=== PATIENT | male | born 1950 | race Caucasian/White ===

== ENCOUNTER → 2020-01-20 09:31 | Outpatient (BNVA) | payer MEDICARE, OTHER, SELFPAY | PROVIDERS: Family Provider Internal Medicine; PCP Registered Nurse; Visit Provider Nurse Practitioner Family | DX: N18.2 Chronic kidney disease, stage 2 (mild) (principal) | CPT/HCPCS: 80069; 82570; 84156; 85007; 85027 ==

== ENCOUNTER → 2020-01-23 08:19 | Outpatient (BNVA) | payer MEDICARE, OTHER, SELFPAY | PROVIDERS: Family Provider Internal Medicine; PCP Registered Nurse; Visit Provider Nurse Practitioner Psychiatric/Mental Health | DX: F33.2 Major depressive disorder, recurrent severe without psychotic features (principal); F41.1 Generalized anxiety disorder | CPT/HCPCS: 99213 ==

== ENCOUNTER → 2020-03-31 07:33 | Outpatient (BNVA) | payer MEDICARE, OTHER, SELFPAY | PROVIDERS: Family Provider Internal Medicine; PCP Registered Nurse; Visit Provider Nurse Practitioner Psychiatric/Mental Health | DX: F33.2 Major depressive disorder, recurrent severe without psychotic features (principal); F41.1 Generalized anxiety disorder | CPT/HCPCS: 99214 ==

== ENCOUNTER 2020-04-14 15:27 | Outpatient (CLI) | payer MEDICARE, OTHER, SELFPAY ==
--- NOTE | 2020-04-14 15:35 | XR_ITS ---
WS: [id number] LEFT SHOULDER: 3 VIEW(S) TECHNIQUE: Internal and external rotation with Y view. HISTORY: left shoulder pain COMPARISON: None available. No fracture or dislocation or soft tissue abnormality. Moderate narrowing of the AC joint and glenohumeral joint. There are small lytic areas over the humer al head and glenoid. Visualized LEFT lung is clear. XR/XR shoulder LT min 2V* [id number] IMPRESSION: 1. Moderate AC joint and glenohumeral joint space narrowing. 2. Lytic changes in the humeral head and glenoid. May be subchondral cystic ch anges from degeneration. Multiple myeloma may appear similar.
--- NOTE | 2020-04-14 15:35 | MR_ITS ---
WS: [id number] MRI LEFT SHOULDER HISTORY: M25.512 Pain in left shoulder COMPARISON: Shoulder radiograph 04/14/2020 TECHNIQUE: Multiplanar sequences of the shoulder joint are submitted. Quality of this examination is limited by motion. Moderate AC joint hypertrophy. Soft tissue hypertrophy and osteophytes encroach upon the supraspinatu s muscle. There is a large amount of fluid in the subacromial and subdeltoid bursa with synovial thic kening. Osteophyte measuring 6 mm from the distal acromion causing encroachment and narrowing of the acromiohumeral distance. No os acromion. Biceps tendon is not identified in the bicipital groove. The re is a thickened biceps tendon which is extracapsular with a large amount of fluid in the tendon she ath. Insertion site tear of the supraspinatus tendon. There is marked fraying along the superior articular surfaces. There is an additional partial thickness tear extending into the myotendinous insertion ov er the superior humeral head. There is an additional moderate-sized insertion site tear of the infras pinatus tendon. There is fluid extending along the subscapularis tendon which is often seen with tear . There is fluid in the subscapularis recess. There are small loose bodies in the fluid around the sh oulder. Mild atrophy of the subscapularis and supraspinatus muscles. Marked narrowing of the glenohumeral antonio nt. Humeral head is high riding from the glenoid. Marked degenerative changes with loss of cartilage over the glenoid and humeral head. Osteophyte and bone formation along the humeral head. There is an additional loose body in the tendon sheath of the proximal biceps tendon. Abnormal signal throughout the entire labrum. MR/MR shoulder LT wo con* [id number] IMPRESSION: 1. Significant degenerative changes involving the AC joint with encroachment u salvador the supraspinatus tendon. 2. 6 mm distal acromial osteophyte encroaching and narrowing the acromial yanci ral joint space. 3. Joint and bursal fluid with synovial thickening and loose bodies. Consider inflammatory arthropathy. 4. Moderate-sized insertion site tear infraspinatus tendon. Small insertion si te tear supraspinatus tendon with additional articular surface tear of the more proximal tendon over the superior humeral head. 5. Fluid along the tendon sheath of the subscapularis typically indicates a te ndon tear although there is severe tendinopathy and highly suspicious for a dis tae tear. 6. Diffusely abnormal labrum. 7. Dislocated torn biceps tendon with a loose body in the tendon sheath. 8. Severe degenerative changes at the glenohumeral joint and humeral head.
== END 2020-04-14 15:28 | disposition home or self-care (01) ==
LOC: RADWPI 15:33
PROVIDERS: Family Provider Registered Nurse; PCP Registered Nurse; Visit Provider Registered Nurse
DX: M25.512 Pain in left shoulder (principal); M25.712 Osteophyte, left shoulder; S46.812A Strain of other muscles, fascia and tendons at shoulder and upper arm level, left arm, initial encounter; X58.XXXA Exposure to other specified factors, initial encounter
CPT/HCPCS: 73030; 73221

== ENCOUNTER → 2020-05-12 08:36 | Outpatient (BNVA) | payer MEDICARE, OTHER, SELFPAY | PROVIDERS: Family Provider Registered Nurse; PCP Registered Nurse; Visit Provider Nurse Practitioner Psychiatric/Mental Health | DX: F33.2 Major depressive disorder, recurrent severe without psychotic features (principal); F41.1 Generalized anxiety disorder | CPT/HCPCS: 99213 ==

== ENCOUNTER 2020-06-02 08:08 | Outpatient (CLI) | payer MEDICARE, OTHER, SELFPAY ==
--- NOTE | 2020-06-02 08:20 | XRR_ITS ---
PROCEDURE INFORMATION: Exam: XR Right Knee Exam date and time: 06/02/2020 8:32 AM Age: 69 years old Clinical indication: Pain; Bilateral; Prior surgery; Surgery type: Bilat knee replacement; Additional info: Bilateral knee pain TECHNIQUE: Imaging protocol: XR Right knee. Views: 1 or 2 views. COMPARISON: No relevant prior studies available. FINDINGS: Bones/joints: Anatomic alignment of right knee arthroplasty. No periprosthetic lucency. Small joint effusion. Soft tissues: Unremarkable soft tissues. IMPRESSION: Anatomic alignment of right knee arthroplasty. PROCEDURE INFORMATION: Exam: XR Left Knee Exam date and time: 06/02/2020 8:32 AM Age: 69 years old Clinical indication: Pain; Bilateral; Prior surgery; Surgery type: Bilat knee replacement; Additional info: Bilateral knee pain TECHNIQUE: Imaging protocol: XR Left knee. Views: 1 or 2 views. COMPARISON: No relevant prior studies available. FINDINGS: Bones/joints: Anatomic alignment of left knee arthroplasty. No periprosthetic lucency. Small joint effusion. Soft tissues: Unremarkable soft tissues. XR/[place] [id number] IMPRESSION: Anatomic alignment of left knee arthroplasty.
== END 2020-06-02 08:09 | disposition home or self-care (01) ==
LOC: RAD 08:16
PROVIDERS: PCP Registered Nurse; Visit Provider Registered Nurse
DX: M25.561 Pain in right knee (principal); M25.562 Pain in left knee; Z96.652 Presence of left artificial knee joint
CPT/HCPCS: 73565

== ENCOUNTER 2020-06-16 07:49 | Outpatient (CLI) | payer MEDICARE, OTHER, SELFPAY ==
--- NOTE | 2020-06-16 08:00 | CT_ITS ---
WS: [id number] NONCONTRAST CT RIGHT KNEE TECHNIQUE: Noncontrast CT right knee with coronal and sagittal reformatted images. CLINICAL INFORMATION: Right knee pain COMPARISON: None. DLP: 1318.[address] scans at [facility] use at least one of these dose optimization techniques: automat ed exposure control; mA and/or kV adjustment per patient size (includes targeted exams where dose is matched to clinical indication); or iterative reconstruction. FINDINGS: Images degraded by beam hardening artifact from right TKA. Right TKA position. No evidence of hardware loosening. Patellar resurfacing with patella prosthesis. No acute fractures. Small moderate suprapatellar effusion. Otherwise normal visualized soft tissues. Normal popliteal fos sa. Mild soft tissue edema in the prepatellar and infrapatellar subcutaneous soft tissues. CT/CT knee RT wo con* [id number] IMPRESSION: 1. Postoperative changes right TKA. No evidence of hardware loosening. Hardwar e appears in good position. 2. Small moderate suprapatellar effusion. 3. Mild prepatellar and infrapatellar subcutaneous soft tissue edema. 4. No acute fractures. No other significant findings.
== END 2020-06-16 07:50 | disposition home or self-care (01) ==
PROVIDERS: PCP Registered Nurse; Visit Provider Registered Nurse
DX: M25.561 Pain in right knee (principal); M25.461 Effusion, right knee; R60.9 Edema, unspecified; Z89.611 Acquired absence of right leg above knee
CPT/HCPCS: 73700

== ENCOUNTER → 2020-06-18 13:30 | Outpatient (BNVA) | payer MEDICARE, OTHER, SELFPAY | PROVIDERS: PCP Registered Nurse; Visit Provider Registered Nurse | DX: M25.561 Pain in right knee (principal); M25.461 Effusion, right knee | CPT/HCPCS: 84550; 85025; 85651; 86140 ==

== ENCOUNTER → 2020-07-13 10:06 | Outpatient (BNVA) | payer MEDICARE, OTHER, SELFPAY | PROVIDERS: PCP Registered Nurse; Referring Provider Registered Nurse; Visit Provider Specialist | DX: M25.561 Pain in right knee (principal) | CPT/HCPCS: 73560; 73565 ==

== ENCOUNTER → 2020-10-14 08:33 | Outpatient (BNVA) | payer MEDICARE, OTHER, SELFPAY | PROVIDERS: PCP Registered Nurse; Visit Provider Nurse Practitioner Psychiatric/Mental Health | DX: F33.2 Major depressive disorder, recurrent severe without psychotic features (principal); F41.1 Generalized anxiety disorder | CPT/HCPCS: 99213 ==

== ENCOUNTER 2020-11-19 15:18 | Outpatient (CLI) | payer MEDICARE, OTHER, SELFPAY ==
--- NOTE | 2020-11-19 15:00 | USCV_ITS ---
Jaquan Jacobs Age: 70 Gender: M : 1950 Exam Date: 11/19/2020 15:40 Ordering Phys: Ricardo Mckay [employer] Technologist: Surendra Mack Exam Location: [facility] – [place] Indication: DIZZINESS AND GIDDINESS Risk Factors: Previous Vascular Surgery: Right Brachial BP: / Left Brachial BP: / Right Left Velocity (cm/s) Spectral Plaque Velocity (cm/s) Spectral Plaque Syst/Diast Broadening Syst/Diast Broadening 68.30/ 18.30 Prox CCA 75.30 / 15.50 87.10/ 20.90 Mid CCA 91.40 / 22.20 71.70/ 22.10 Distal CCA 70.10 / 15.40 66.80/ 21.00 Prox ICA 60.30 / 21.30 68.00/ 25.50 Mid ICA 59.60 / 27.70 53.10/ 19.60 Distal ICA 66.70 / 28.40 75.40 ECA 80.20 0.78 ICA/CCA 0.73 Antegrade Vertebral Antegrade 52.80/ 15.70 cm/s 76.00/ 15.60 cm/s Tri Subclavian Tri 48.50 76.85 CONCLUSIONS Right ICA stenosis <50%. Left ICA stenosis <50%. Normal antegrade Doppler flow noted in the left vertebral artery. Normal antegrade Doppler flow noted in the right vertebral artery. Bert He MD (Electronically Signed) Final Date: 20 November 2020 08:49 S
== END 2020-11-19 15:19 | disposition home or self-care (01) ==
LOC: US 15:21
PROVIDERS: PCP Registered Nurse; Visit Provider Registered Nurse
DX: R42 Dizziness and giddiness (principal); I65.23 Occlusion and stenosis of bilateral carotid arteries
CPT/HCPCS: 93880

== ENCOUNTER 2021-01-04 13:24 | Outpatient (CLI) | payer MEDICARE, OTHER, SELFPAY ==
--- NOTE | 2021-01-04 13:35 | XRR_ITS ---
PROCEDURE INFORMATION: Exam: XR Lumbosacral Spine Exam date and time: 01/04/2021 1:39 PM Age: 70 years old Clinical indication: Low back pain; Additional info: M54.5 - low back pain-years TECHNIQUE: Imaging protocol: XR of the lumbosacral spine. Views: 2 or 3 views. COMPARISON: CR XR knees AP WB w RT lmt ORTH 07/13/2020 10:12 AM FINDINGS: Bones/joints: No acute fracture. Normal alignment. There is disc space narrowing and osteophyte formation throughout the lumbar spine. Soft tissues: Unremarkable. XR/XR lumbar spine 2-3V* [id number] IMPRESSION: No acute findings.
== END 2021-01-04 13:25 | disposition home or self-care (01) ==
LOC: RAD 13:27
PROVIDERS: PCP Registered Nurse; Visit Provider Registered Nurse
DX: M54.5 Low back pain (principal)
CPT/HCPCS: 72100

== ENCOUNTER 2021-01-13 11:31 | Outpatient (CLI) | payer MEDICARE, OTHER, SELFPAY ==
[2021-01-13 12:33] LABS: Basophils % 0.6 %; Eosinophils # 0.1 10^3/uL (0.0-0.8); Eosinophils % 1.4 %; Hematocrit 38.3 % (42.0-52.0); Hemoglobin 12.6 g/dL (11.7-16.6); Lymphocytes # 1.1 10^3/uL (0.8-4.8); Lymphocytes % 17.3 %; Mean Corpuscular HGB Conc 32.9 g/dL (30.0-36.0); Mean Corpuscular Hemoglobin 30.5 pg (28.0-34.0); Mean Corpuscular Volume 92.7 fL (80-94); Mean Platelet Volume 9.7 fL (7.4-10.4); Monocytes # 0.4 10^3/uL (0.2-0.9); Monocytes % 6.9 %; Neutrophils # 4.67 10^3/uL (1.8-7.7); Neutrophils % 73.5 %; Nucleated Red Blood Cells % 0 %; Platelet Count 151 10^3/cmm (130-400); Red Blood Count 4.13 10^6/uL (4.1-5.3); White Blood Count 6.4 10^3/uL (4.0-10.0)
[2021-01-13 12:56] LABS: Anion Gap 8.9 (5-19); Blood Urea Nitrogen 14 mg/dL (8-23); Calcium 8.7 mg/dL (8.5-10.5); Carbon Dioxide 28 mmol/L (22-29); Chloride 104 mmol/L (98-107); Glomerular Filtration Rate 83.7 mL/min (90-130); Glucose 92 mg/dL (65-115); Phosphorus 2.7 mg/dL (2.5-4.5); Potassium 3.9 mmol/L (3.5-5.1); Sodium 137 mmol/L (136-145)
[2021-01-13 13:13] LABS: Creatinine Urine, Random 53 mg/dL (39-259); Microalbumin Random Urine 3 ug/dL (0-20)
[2021-01-13 13:22] LABS: Microalbum Creatinine Ratio Ur 57 mg/dL (0-20)
== END 2021-01-13 11:32 | disposition home or self-care (01) ==
LOC: LAB 11:44
PROVIDERS: PCP Registered Nurse; Visit Provider Internal Medicine Nephrology
DX: N18.30 Chronic kidney disease, stage 3 unspecified (principal)
CPT/HCPCS: 36415; 80069; 82044; 85025

== ENCOUNTER 2021-01-13 11:46 | Outpatient (CLI) | payer MEDICARE, OTHER, SELFPAY ==
--- NOTE | 2021-01-13 12:35 | XR_ITS ---
WS: [id number] Left hip, AP and frog leg views, 01/13/2021 Clinical Data: M25.552 - Pain in left hip Comparison: Pelvis and hips, 09/17/2018. Findings: No fractures or dislocations are seen. The left hip joint is intact. The soft tissues are not remarka ble. The adjacent pelvis is normal. The patient has clips in the scrotum from a vasectomy. XR/XR hip LT 2-3V wo/w pel* [id number] Impression: Negative left hip.
== END 2021-01-13 11:47 | disposition home or self-care (01) ==
PROVIDERS: PCP Registered Nurse; Visit Provider Registered Nurse
DX: M25.552 Pain in left hip (principal); G89.29 Other chronic pain
CPT/HCPCS: 73502

== ENCOUNTER → 2021-01-20 07:34 | Outpatient (BNVA) | payer MEDICARE, OTHER, SELFPAY | PROVIDERS: PCP Registered Nurse; Visit Provider Nurse Practitioner Psychiatric/Mental Health | DX: F33.2 Major depressive disorder, recurrent severe without psychotic features (principal); F41.1 Generalized anxiety disorder | CPT/HCPCS: 99214 ==

== ENCOUNTER → 2021-05-20 08:05 | Outpatient (BNVA) | payer MEDICARE, OTHER, SELFPAY | PROVIDERS: PCP Registered Nurse; Visit Provider Nurse Practitioner Psychiatric/Mental Health | DX: F33.2 Major depressive disorder, recurrent severe without psychotic features (principal); F41.1 Generalized anxiety disorder | CPT/HCPCS: 99214 ==

== ENCOUNTER → 2021-05-21 09:11 | Outpatient (BNVA) | payer MEDICARE, OTHER, SELFPAY | PROVIDERS: PCP Registered Nurse; Visit Provider Internal Medicine Nephrology | DX: E55.9 Vitamin D deficiency, unspecified (principal); N18.2 Chronic kidney disease, stage 2 (mild) | CPT/HCPCS: 82306 ==

== ENCOUNTER → 2021-06-23 16:06 | Outpatient (BNVA) | payer MEDICARE, OTHER, SELFPAY | PROVIDERS: PCP Registered Nurse; Visit Provider Urology | DX: N52.9 Male erectile dysfunction, unspecified (principal) | CPT/HCPCS: 81003 ==

== ENCOUNTER → 2021-09-16 07:35 | Outpatient (BNVA) | payer MEDICARE, OTHER, SELFPAY | PROVIDERS: PCP Registered Nurse; Visit Provider Nurse Practitioner Psychiatric/Mental Health | DX: F33.2 Major depressive disorder, recurrent severe without psychotic features (principal); F41.1 Generalized anxiety disorder | CPT/HCPCS: 99214 ==

== ENCOUNTER → 2022-01-04 08:48 | Outpatient (BNVA) | payer MEDICARE, OTHER, SELFPAY | PROVIDERS: PCP Registered Nurse; Visit Provider Nurse Practitioner Psychiatric/Mental Health | DX: F33.2 Major depressive disorder, recurrent severe without psychotic features (principal); F41.1 Generalized anxiety disorder | CPT/HCPCS: 99214 ==

== ENCOUNTER → 2022-01-12 11:29 | Outpatient (BNVA) | payer MEDICARE, OTHER, SELFPAY | PROVIDERS: PCP Registered Nurse; Visit Provider Nurse Practitioner | DX: Z90.5 Acquired absence of kidney (principal); I10 Essential (primary) hypertension | CPT/HCPCS: 82306; 82310; 82570; 83970; 84156; 85025 ==

== ENCOUNTER 2022-01-19 10:37 | Outpatient (CLI) | payer MEDICARE, OTHER, SELFPAY ==
[2022-01-19 11:24] LABS: Albumin Level 4.3 g/dL (3.5-5.2); Anion Gap 11.1 (5-19); Blood Urea Nitrogen 20 mg/dL (8-23); Calcium 9.2 mg/dL (8.5-10.5); Carbon Dioxide 27 mmol/L (22-29); Chloride 103 mmol/L (98-107); Glomerular Filtration Rate 83.4 mL/min (90-130); Glucose 96 mg/dL (65-115); Phosphorus 2.8 mg/dL (2.5-4.5); Potassium 4.1 mmol/L (3.5-5.1); Sodium 137 mmol/L (136-145)
== END 2022-01-19 10:38 | disposition home or self-care (01) ==
LOC: LAB 10:43
PROVIDERS: PCP Registered Nurse; Visit Provider Registered Nurse
DX: N18.2 Chronic kidney disease, stage 2 (mild) (principal)
CPT/HCPCS: 80069

== ENCOUNTER 2022-11-30 14:11 | Outpatient (CLI) | payer MEDICARE, SELFPAY ==
--- NOTE | 2022-11-30 14:34 | XR_ITS ---
WS: [id number] Exam: XR shoulder RT min 2V* [id number] Date/Time of Exam: 11/30/2022 2:51 PM Reason For Exam: W19.XXXA - Unspecified fall, initial encounter No acute fracture or dislocation. Moderately advanced degenerative change of the glenohumeral joint w ith [id number]. Subcortical cyst formation in the glenoid and humeral head. Moderate arthrosis at t he AC joint. XR/XR shoulder RT min 2V* [id number] IMPRESSION: 1. No fracture or dislocation. 2. Moderately advanced degenerative changes as detailed above.
== END 2022-11-30 14:12 | disposition home or self-care (01) ==
PROVIDERS: PCP Registered Nurse; Visit Provider Registered Nurse
DX: M19.011 Primary osteoarthritis, right shoulder (principal); W19.XXXA Unspecified fall, initial encounter
CPT/HCPCS: 73030

== ENCOUNTER → 2023-03-27 08:54 | Outpatient (BNVA) | payer MEDICARE, SELFPAY | PROVIDERS: PCP Registered Nurse; Visit Provider Registered Nurse | DX: Z00.00 Encounter for general adult medical examination without abnormal findings (principal) | CPT/HCPCS: 80053; 80061; 85025 ==

== ENCOUNTER → 2023-04-06 10:26 | Outpatient (BNVA) | payer MEDICARE, SELFPAY | PROVIDERS: PCP Registered Nurse; Visit Provider Internal Medicine Nephrology | DX: N18.2 Chronic kidney disease, stage 2 (mild) (principal) | CPT/HCPCS: 80069; 82306; 82310; 82570; 83970; 84156; 85025 ==

== ENCOUNTER → 2023-04-21 09:22 | Outpatient (BNVA) | payer MEDICARE, SELFPAY | PROVIDERS: PCP Registered Nurse; Visit Provider Registered Nurse | DX: E87.6 Hypokalemia (principal) | CPT/HCPCS: 80053 ==

== ENCOUNTER → 2023-06-15 14:09 | Outpatient (BNVA) | payer MEDICARE, SELFPAY | PROVIDERS: PCP Registered Nurse; Visit Provider Registered Nurse | DX: R68.89 Other general symptoms and signs (principal); Z11.52 Encounter for screening for COVID-19 | CPT/HCPCS: 87400; 87426 ==

== ENCOUNTER → 2023-10-31 09:53 | Outpatient (BNVA) | payer MEDICARE, SELFPAY | PROVIDERS: PCP Registered Nurse; Visit Provider Registered Nurse | DX: R60.9 Edema, unspecified (principal) | CPT/HCPCS: 80048; 83880 ==

== ENCOUNTER 2023-11-12 14:43 | Outpatient (CLI) | payer MEDICARE, SELFPAY ==
--- NOTE | 2023-11-12 15:33 | XRR_ITS ---
PROCEDURE INFORMATION: Exam: XR Chest Exam date and time: 11/12/2023 3:34 PM Age: 72 years old Clinical indication: Patient HX: Bilateral lower extremity edema; No previous cardiac HX TECHNIQUE: Imaging protocol: Radiologic exam of the chest. Views: 2 views. COMPARISON: CR XR chest 2V* [id number] 08/02/2018 10:39 AM FINDINGS: Lungs: Lungs are clear bilaterally. Pleural spaces: No pleural effusion. No pneumothorax. Heart/Mediastinum: Stable moderate enlargement of the cardiac silhouette. Mediastinal contours are unremarkable. Stable moderate hiatal hernia. Vasculature: Stable vascular calcifications in the aorta. Stable tortuosity of the aorta. Bones/joints: Unremarkable for age. XR/XR chest 3V [id number] IMPRESSION: 1. No acute cardiopulmonary process. 2. Incidental/nonacute findings are listed in the report.
== END 2023-11-12 14:44 | disposition home or self-care (01) ==
PROVIDERS: PCP Registered Nurse; Visit Provider Registered Nurse
DX: R60.0 Localized edema (principal)
CPT/HCPCS: 71047

== ENCOUNTER → 2024-02-12 10:53 | Outpatient (BNVA) | payer MEDICARE, SELFPAY | PROVIDERS: PCP Registered Nurse; Visit Provider Nurse Practitioner Psychiatric/Mental Health | DX: Z79.899 Other long term (current) drug therapy (principal) | CPT/HCPCS: 80061; 83036 ==

== ENCOUNTER → 2024-04-30 09:05 | Outpatient (BNVA) | payer MEDICARE, SELFPAY | PROVIDERS: PCP Registered Nurse; Visit Provider Registered Nurse | DX: N18.9 Chronic kidney disease, unspecified (principal); E55.9 Vitamin D deficiency, unspecified | CPT/HCPCS: 80069; 82043; 82306; 82310; 83970; 85007; 85027 ==

== ENCOUNTER 2024-08-09 11:43 | Outpatient (CLI) | payer MEDICARE, SELFPAY ==
[2024-08-06 10:55] VITALS: BP 130/87; BMI 29.4
--- NOTE | 2024-08-09 11:49 | XR_ITS ---
WS: [id number] XR shoulder RT min 2V* [id number] REASON FOR EXAM: M19.011 - Primary osteoarthritis, right shoulder FINDINGS: No fracture or focal bone lesion. Moderate narrowing of the acromioclavicular joint with subchondral sclerosis and osteophytosis. Severe narrowing of the joint space, essentially [id number] with significant subchondral sclerosis and cystic change in the humeral head and glenoid. Moderate osteophytosis of the humeral head. Significant subchondral and cystic change in the greater biceps tuberosity. XR/XR shoulder RT min 2V* [id number] IMPRESSION: Moderate osteoarthritis in the acromioclavicular joint. Severe osteoarthritis in the glenohumeral joint. Significant rotator cuff tendon arthropathy.
== END 2024-08-09 11:44 | disposition home or self-care (01) ==
LOC: RAD 11:44
PROVIDERS: PCP Registered Nurse; Visit Provider Registered Nurse
DX: M19.011 Primary osteoarthritis, right shoulder (principal); M25.711 Osteophyte, right shoulder
CPT/HCPCS: 73030

== ENCOUNTER → 2024-09-09 12:41 | Outpatient (BNVA) | payer MEDICARE, SELFPAY ==
[2024-08-06 10:55] VITALS: BP 130/87; BMI 29.4
== END ==
PROVIDERS: PCP Registered Nurse; Visit Provider Specialist
DX: M19.011 Primary osteoarthritis, right shoulder (principal)
CPT/HCPCS: 73030; 99204

== ENCOUNTER 2024-09-17 13:07 | Outpatient (CLI) | payer MEDICARE, SELFPAY ==
[2024-08-06 10:55] VITALS: BP 130/87; BMI 29.4
--- NOTE | 2024-09-17 14:58 | MR_ITS ---
WS: [id number] MRI RIGHT SHOULDER HISTORY: SHOULDER PAIN COMPARISON: Radiograph 09/09/2024 TECHNIQUE: Multiplanar sequences of the shoulder joint are submitted. Motion artifact on all sequences. Patient was in pain during this examination. Severe AC joint arthritis. Osteophytic and soft tissue hypertrophy of the AC joint. Subchondral erosi ons involving the distal clavicle and the adjacent acromion. Mild downsloping of the acromion. Abnorm al soft tissue at the bicipital groove. A normal biceps tendon is not identified. There is lobulated soft tissue which may be an abnormal biceps tendon or calcific deposits within the tendon sheath. No os acromion. High riding humeral head. Severe subchondral cystic changes involving the humeral head with osteophyt ic ridging. Glenoid subchondral cystic changes. Severe narrowing of the glenohumeral joint. Osteophyt ic ridging of the glenoid. There is a large joint effusion. Bursal fluid present within the subacromi al and subdeltoid bursa. There is axillary recess fluid. Marked thickening of the distal supraspinatus tendon beginning directly over the humeral head from te ndinopathy. There is an additional insertion site tear of the supraspinatus with interstitial extensi on of the tear. No full-thickness tear. Infraspinatus tendon appears intact. Wavy appearance of the d istal subscapularis tendon increased T2 signal. Distal subscapularis tendon is not identified extendi ng to the humeral head. Suspect high-grade if not complete tear. Wavy appearance of the middle glenoh umeral ligament. Intra-articular bodies are noted within the joint fluid. Markedly abnormal labrum. Suspect at least the anterior and posterior labrum are torn and avulsed. Si gnal abnormality within the superior and inferior labrum also. MR/MR shoulder RT wo con* [id number] IMPRESSION: 1. Quality is compromised by motion artifact due to pain. 2. Large joint effusion with bursal distention of the subacromial and subdelto id bursa and axillary recess and intra-articular bodies within the fluid. 3. Severe AC joint arthritis. 4. Severe glenohumeral joint arthritis. Loss of the normal joint space with cardona bchondral cystic changes and osteophytic ridging. 5. Severe distal supraspinatus tendinopathy with an additional insertion site tear extending interstitial. 6. Highly suspicious for distal complete tear of the subscapularis tendon. 7. Normal biceps tendon is not identified in the bicipital groove. There is a lobulated soft tissue which may be calcific deposits in the tendon sheath. 8. Diffusely abnormal labrum.
== END 2024-09-17 13:08 | disposition home or self-care (01) ==
LOC: RAD 09-20 06:53
PROVIDERS: PCP Registered Nurse; Visit Provider Specialist
DX: M13.811 Other specified arthritis, right shoulder (principal); R93.6 Abnormal findings on diagnostic imaging of limbs; M25.711 Osteophyte, right shoulder; M75.101 Unspecified rotator cuff tear or rupture of right shoulder, not specified as traumatic
CPT/HCPCS: 73221

== ENCOUNTER → 2024-12-25 13:11 | Outpatient (BNVA) | payer MEDICARE, SELFPAY ==
[2024-08-06 10:55] VITALS: BP 130/87; BMI 29.4
== END ==
PROVIDERS: PCP Registered Nurse; Visit Provider Specialist
DX: M19.011 Primary osteoarthritis, right shoulder (principal)
CPT/HCPCS: 99214

== ENCOUNTER → 2025-02-18 10:18 | Outpatient (BNVA) | payer OTHER, SELFPAY ==
[2024-08-06 10:55] VITALS: BP 130/87; BMI 29.4
== END ==
PROVIDERS: PCP Registered Nurse; Visit Provider Nurse Practitioner Psychiatric/Mental Health
DX: F33.2 Major depressive disorder, recurrent severe without psychotic features (principal); F41.1 Generalized anxiety disorder
CPT/HCPCS: 80061; 83036

== ENCOUNTER → 2025-04-24 09:31 | Outpatient (BNVA) | payer OTHER, SELFPAY ==
[2025-02-21 11:33] VITALS: BP 146/90; BMI 31.1
== END ==
PROVIDERS: PCP Registered Nurse; Visit Provider Registered Nurse
DX: Z13.6 Encounter for screening for cardiovascular disorders (principal); I10 Essential (primary) hypertension
CPT/HCPCS: 80053; 80061

== ENCOUNTER → 2025-07-10 14:14 | Outpatient (BNVA) | payer MEDICARE, SELFPAY ==
[2025-07-04 09:18] VITALS: BP 146/90; BMI 31.1
== END ==
PROVIDERS: PCP Registered Nurse; Visit Provider Registered Nurse
DX: R55 Syncope and collapse (principal)
CPT/HCPCS: 80053; 85025

== ENCOUNTER 2025-07-21 09:10 | Outpatient (CLI) | payer MEDICARE, SELFPAY ==
[2025-07-04 09:18] VITALS: BP 146/90; BMI 31.1
--- NOTE | 2025-07-21 09:15 | CT_ITS ---
WS: [id number] CT HEAD TECHNIQUE: Noncontrast CT of the head obtained from the skullbase to the vertex. CLINICAL INFORMATION: R55 - Syncope and collapse COMPARISON: None. DLP: 1024.[address] scans at [facility] use at least one of these dose optimization techniques: automated exposure control; mA and/or kV adjustment per patient size (includes targeted exams where dose is matched to clinical indication); or iterative reconstruction. FINDINGS: No evidence of intracranial hemorrhage or mass effect. Ventricular system and basal cisterns are patent. Moderate small vessel changes with mild parenchymal volume loss. No extra-axial fluid collections. No evidence of mass or mass effect. Vascular calcification. Slightly ectatic basilar artery Partially visualized small polyp or retention cyst RIGHT maxillary sinus measuring 11 mm. Paranasal sinuses and mastoid air cells are otherwise well aerated. .Normal visualized soft tissues. CT/CT head wo con* [id number] IMPRESSION: 1. No evidence of intracranial hemorrhage or mass effect. 2. Moderate small vessel changes and mild parenchymal volume loss. 3. Vascular calcification. 4. No acute intracranial findings.
== END 2025-07-21 09:11 | disposition home or self-care (01) ==
LOC: RAD 09:11
PROVIDERS: PCP Registered Nurse; Visit Provider Registered Nurse
DX: R55 Syncope and collapse (principal); R93.0 Abnormal findings on diagnostic imaging of skull and head, not elsewhere classified
CPT/HCPCS: 70450

== ENCOUNTER → 2025-08-04 11:36 | Outpatient (BNVA) | payer OTHER, SELFPAY ==
[2025-07-04 09:18] VITALS: BP 146/90; BMI 31.1
== END ==
PROVIDERS: PCP Registered Nurse; Visit Provider Registered Nurse
DX: D64.9 Anemia, unspecified (principal)
CPT/HCPCS: 85025